=== PATIENT | female | born 1970 | race Caucasian/White ===

== ENCOUNTER 2020-08-16 06:38 | Observation (INO) | payer OTHER ==
--- NOTE | 2020-08-14 16:32 | Diagnostic Imaging Report ---
EXAMINATION: CHEST 2 VIEWS INDICATION: Pre-operative COMPARISON: None FINDINGS: LINES/TUBES:None LUNGS:The lungs are well-inflated. No focal consolidation or pulmonary edema. PLEURA:No pleural effusion or pneumothorax. MEDIASTINUM:The cardiomediastinal silhouette appears normal in size and shape. BONES/SOFT TISSUES:No acute osseous injury. ABDOMEN:No free air under the diaphragm. IMPRESSION: No focal pneumonia or pulmonary edema. Signed by: Frank Sultana MD on 08/14/2020 4:29 PM
[2020-08-14 16:50] LABS: BASOPHILS # (AUTO) 0.1 (0.0-0.1); BASOPHILS % 0.5 % (0.0-1.0); EOSINOPHILS # (AUTO) 0.2 (0.0-0.4); HEMATOCRIT 39.5 % (34.2-44.1); HEMOGLOBIN 13.5 g/dL (12.0-16.0); LYMPHOCYTES # (AUTO) 1.7 (1.0-3.2); LYMPHOCYTES % 17.8 % (18.0-39.1); MEAN CORPUSCULAR HEMOGLOBIN 31.4 pg (28-32); MEAN CORPUSCULAR HGB CONC 34.2 g/dL (31-35); MEAN CORPUSCULAR VOLUME 91.9 fL (81-99); MONOCYTES # (AUTO) 0.6 (0.2-0.8); NEUTROPHILS # (AUTO) 6.9 (2.1-6.9); NEUTROPHILS % 73.4 % (38.7-80.0); PLATELET COUNT 336 x10e3/uL (140-360); RED CELL DISTRIBUTION WIDTH 12.4 % (11.7-14.4)
[2020-08-14 17:04] LABS: INR 0.86; PROTHROMBIN TIME 12.2 seconds (11.9-14.5)
[2020-08-14 17:05] LABS: PARTIAL THROMBOPLASTIN TIME 26.9 seconds (23.8-35.5)
[2020-08-14 17:11] LABS: ANION GAP 14.6 mmol/L (8-16); BLOOD UREA NITROGEN 11 mg/dL (7-26); BUN/CREATININE RATIO 13 (6-25); CALCIUM 9.4 mg/dL (8.4-10.2); CARBON DIOXIDE 25 mmol/L (22-29); CHLORIDE 103 mmol/L (98-107); CREATININE, SERUM 0.84 mg/dL (0.57-1.11); EST GLOMERULAR FILTRATION RATE > 60 ML/MIN (60-); GLUCOSE 100 mg/dL (74-118); POTASSIUM 3.6 mmol/L (3.5-5.1); SODIUM 139 mmol/L (136-145)
[~2020-08-16] VITALS: Ht 177.8 cm; Wt 78.0 kg
[~2020-08-16 06:38] MED LIST: ACETAMINOPHEN 1000 MG/100 ML 100 ML IV ONE; ADVIL200 MG PO; AMLODIPINE BESYL5 MG PO; IBUPROFEN 800MG/ 200ML 200 ML IV ONE; LIDOCAINE HCL (LTA) 4 ML SOLN ONE; TYLENOL325 M2 PO
[2020-08-16] MEDS ORDERED: CEFAZOLIN SOD 1 GM/NS 50ML 100 ML IV ONE (06:55)
[2020-08-16] MEDS ORDERED: VANCOMYCIN HCL 1 GM VIAL ONE (08:28)
[2020-08-16] MEDS ORDERED: THROMBIN FOR SOLN 5,000 UNIT VIAL ONE (08:28)
[2020-08-16] MEDS ORDERED: LIDOCAINE 1% W/EPINEPHRINE 20 ML VIAL ONE (08:28)
[2020-08-16] MEDS ORDERED: PROMETHAZINE HCL (IM) 25 MG/ML VIAL IM PRN (12:00)
[2020-08-16] MEDS ORDERED: MORPHINE SULFATE 5 MG/ML VIAL IM PRN (12:00)
[2020-08-16] MEDS ORDERED: ONDANSETRON HCL INJ 2MG/ML 2ML 2 MG/ML VIAL IV PRN (12:00)
[2020-08-16] MEDS ORDERED: MAGNESIUM/ALUMINUM/SIMETHICONE 30 ML UDC PO PRN (12:00)
[2020-08-16] MEDS ORDERED: ZOLPIDEM TARTRATE 5 MG TAB PO PRN (12:00)
[2020-08-16] MEDS ORDERED: CEPACOL SORE THROAT LOZENGES PO PRN (12:00)
[2020-08-16] MEDS ORDERED: HYDROMORPHONE 2MG/ML 2 MG/ML ML IV PRN (12:00)
[2020-08-16] MEDS ORDERED: CARISOPRODOL 350 MG TAB PO PRN (12:00)
[2020-08-16] MEDS ORDERED: ACETAMINOPHEN 325 MG TAB PO PRN (12:00)
[2020-08-16] MEDS ORDERED: LACTATED RINGER'S 1,000 ML IV SCH (12:00)
[2020-08-16] MEDS ORDERED: NEOSTIGMINE 1 MG/ML 10ML VIAL ONE (12:14)
[2020-08-16] MEDS ORDERED: PROPOFOL IV EMULSION 10 MG/ML 20 ML VIAL ONE (12:14)
[2020-08-16] MEDS ORDERED: LIDOCAINE HCL 2% JELLY 5 ML TUBE ONE (12:14)
[2020-08-16] MEDS ORDERED: SEVOFLURANE INHAL SOLN 250 ML PEN BTL ONE (12:14)
[2020-08-16] MEDS ORDERED: ROCURONIUM BROMIDE 10 MG/ML 5ML VIAL IV ONE (12:14)
[2020-08-16] MEDS ORDERED: GLYCOPYRROLATE INJ 0.2 MG/ML VIAL ONE (12:14)
[2020-08-16] MEDS ORDERED: LIDOCAINE HCL 2% LOCAL INJ 5 ML SDV VIAL INJ ONE (12:14)
[2020-08-16] MEDS ORDERED: DEXAMETHASONE SOD PHOS INJ 4 MG/ML VIAL ONE (12:14)
[2020-08-16] MEDS ORDERED: ONDANSETRON HCL INJ 2MG/ML 2ML 2 MG/ML VIAL ONE (12:14)
[2020-08-16] MEDS ORDERED: FENTANYL CITRATE/PF 100MCG/2 ML INJ ONE ×2 (12:56→13:09)
[2020-08-16] MEDS ORDERED: MIDAZOLAM HCL 2 MG/2 ML VIAL ONE (13:09)
[2020-08-16] MEDS ORDERED: MORPHINE SULFATE INJ 4 MG/ML INJ 1ML IM PRN (14:00)
[2020-08-16] MEDS: OXYCODONE/ACETAMINOPHEN 5-325 1 EACH TABLET PO PRN ×3 (14:19→20:31)
[2020-08-16] MEDS ORDERED: SODIUM CHLORIDE 0.9% 250ML 250 ML ONE (15:44)
[2020-08-16] MEDS: CEFAZOLIN SOD 1 GM/NS 50ML 50 ML IV SCH ×2 (15:58→22:00)
[2020-08-16 16:34] VITALS: BP 109/62
--- NOTE | 2020-08-16 17:01 | Diagnostic Imaging Report ---
EXAMINATION: Lumbar spine radiographs - 1 views CLINICAL HISTORY: Right L5-S1 disc herniation COMPARISON: None. DISCUSSION: Limited intraoperative single cross table radiograph of the lumbar spine. Linear radiopaque surgical markers overlie the L5 vertebra. No acute osseous abnormalities given exam limitations. Moderate degenerative disc changes and facet arthropathy at L5-S1. IMPRESSION: 1. Limited intraoperative cross table radiograph with linear radiopaque surgical markers overlying the L5 vertebra. 2. Moderate degenerative changes at L5-S1. Signed by: Dr. Abel Diez M.D. on 08/16/2020 4:58 PM
--- NOTE | 2020-08-16 17:02 | Diagnostic Imaging Report ---
EXAMINATION: Lumbar spine radiographs - 1 views CLINICAL HISTORY: Right L5-S1 disc herniation COMPARISON: Intraoperative lumbar spine radiograph performed earlier on the same day DISCUSSION: Limited intraoperative single cross table radiograph of the lumbar spine. Linear metallic surgical marker overlies the posterior spinal elements at L5-S1. No acute osseous abnormalities given exam limitations. Moderate degenerative disc changes and facet arthropathy at L5-S1. IMPRESSION: 1. Limited intraoperative cross table radiograph with linear metallic surgical marker overlying the posterior spinal elements at L5-S1. 2. Moderate degenerative changes at L5-S1. Signed by: Dr. Abel Diez M.D. on 08/16/2020 4:59 PM
--- NOTE | 2020-08-16 17:40 | Operative Report ---
DATE OF PROCEDURE: 08/16/2020 SURGEON: Biju Duenas MD PREOPERATIVE DIAGNOSIS: Right L5-S1 disk herniation with radiculopathy, M51.17. POSTOPERATIVE DIAGNOSIS: Right L5-S1 disk herniation with radiculopathy, M51.17. PROCEDURES: Right L5-S1 laminotomy, medial facetectomy, and microsurgical diskectomy, 78[address]. ANESTHESIA: General. INDICATIONS: The patient is a 49-year-old woman, who presents with a right L5-S1 disk herniation with inferior migration of the extruded disk fragment and an intractable right S1 radiculopathy. She was taken to surgery for microsurgical diskectomy. PROCEDURE IN DETAIL: After induction of general anesthesia, the patient was placed on the operating table in prone position over a Melvin frame. The lumbar region was prepped and draped in sterile fashion. A preoperative x-ray was obtained. A small midline incision was created. Lumbar fascia was opened in right of midline and subperiosteal dissection was carried out to expose the right-sided L5-S1 lamina and the medial aspect of the facet joint. A second x-ray confirmed correct localization. The operating microscope was brought in. A high-speed drill equipped with segun bur was used to drill the inferior aspect of the lamina of L5 and the medial rim of the inferior articulating process of L5 and superior rim of the lamina of S1. The ligamentum flavum was resected and the dural sac and S1 nerve root were exposed. The nerve root was slightly retracted medially. The herniated disk material came into view just below the level of the disk space. This was mobilized with a micro ball probe and grasped with a micropituitary rongeur and removed as a large fragment of disk, immediately decompressing the nerve root. The opening into the annulus of the disk was enlarged with a #11 blade and loose contents of the disks were evacuated with curettes and pituitary instruments. Excellent decompression was thus achieved. The wound was irrigated with bacitracin solution and closed in multiple layers with 0 and 2-0 Vicryl sutures. The skin was closed with 3-0 Monocryl sutures in subcuticular fashion. Steri-Strips and dressing were applied. The patient was awakened, extubated, and taken to postanesthesia care unit in stable condition. No intraoperative complications were encountered. Estimated blood loss was minimal. Biju Duenas MD PP/LINDY /[id number]
--- NOTE | 2020-08-16 19:25 | NUR ---
Bedside report completed with morning nurse. Pt alert and oriented to name, lying in bed HOB 45 degrees. Pt c/o mod back pain, will call for medication. Call light within reach, bed low and locked.
[2020-08-16 23:22] VITALS: BP 109/62
[2020-08-17] VITALS: BP 108/53
[2020-08-17 04:00] VITALS: BP 115/68
[2020-08-17] MEDS: CEFAZOLIN SOD 1 GM/NS 50ML 50 ML IV SCH (06:00)
[2020-08-17] MEDS: OXYCODONE/ACETAMINOPHEN 5-325 1 EACH TABLET PO PRN (06:10)
[2020-08-17 08:29] VITALS: BP 115/68
[2020-08-17 08:30] VITALS: BP 121/60
[2020-08-17] MEDS ORDERED: AMLODIPINE BESYLATE 5 MG TAB PO SCH (09:00)
--- NOTE | 2020-08-17 09:28 | NUR ---
dressing removed per [employer] instructions. c/d/i. pt in stable condition, no complaints at this time.
== END 2020-08-17 11:37 | disposition home or self-care (01) ==
LOC: OR 06:38 → PACU V 11:50 → MED/SURG 13:48
PROVIDERS: ADMIT Neurological Surgery; ATTEND Neurological Surgery
DX: M51.17 Intervertebral disc disorders with radiculopathy, lumbosacral region (principal); I10 Essential (primary) hypertension; Z01.810 Encounter for preprocedural cardiovascular examination; Z01.812 Encounter for preprocedural laboratory examination; Z01.818 Encounter for other preprocedural examination; Z11.59 Encounter for screening for other viral diseases
CPT/HCPCS: 36415; 63047; 71046; 72020; 80048; 85025; 85610; 85730; 86850; 86900; 88304; 93005; G0378 ×2; J0131; J0690 ×2; J1100; J2001 ×2; J2250; J2405; J2704; J2710; J3010; J3370; J7050; J7121; U0002

== ENCOUNTER 2020-08-26 01:53 | Observation (INO) | payer OTHER ==
[~2020-08-26] VITALS: Ht 177.8 cm; Wt 78.0 kg
[~2020-08-26 01:53] MED LIST changes: -ACETAMINOPHEN 1000 MG/100 ML 100 ML IV ONE; -IBUPROFEN 800MG/ 200ML 200 ML IV ONE; -LIDOCAINE HCL (LTA) 4 ML SOLN ONE
[2020-08-26] MEDS ORDERED: ONDANSETRON HCL INJ 2MG/ML 2ML 2 MG/ML VIAL IV STA (02:04)
--- NOTE | 2020-08-26 02:20 | Emergency Department Note ---
History of Present Illnes History of Present Illness Chief Complaint: Back Pain History of Present Illness This is a 49 year old female PRESENTS TO THE ER C/O BACK PAIN ONSET X30 MINUTES MANAGER MINING; PT HAD RT L5-S1 DISC HERNIATION SX BY DR. GREWAL ON 08/16/20; PT STATES SHE WAS LAYING ON HER SIDE AND FELT SEVERE PAIN AND THEN FELT A KNOT TO SURGICAL SITE; PT STATES SHE TOOK A 5MG NORCO X30 MINUTES MANAGER MINING; PT STATES PAIN RADIATES DOWN RT LEG; PT IS NAUSEATED. 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 Required: No Onset (how long ago): minute(s) (30) Location: LOWER BACK Quality: PAIN AND SWELLING Radiation: Reports extremity (RLE) Severity: moderate Onset quality: sudden Duration (how long): hour(s) (30 MINUTES) Timing of current episode: constant Progression: unchanged Chronicity: new Context: Reports recent surgery (L5 S1 LAMINECTOMY AND MICRODISKECTOMY 1 ) Relieving factors: none Exacerbating factors: movement Associated symptoms: Reports denies other symptoms Treatments prior to arrival: none Past Medical/Family History Physician Review I have reviewed the patient's past medical and family history. Any updates have been documented here. Past Medical History Recent Fever: No Clinical Suspicion of Infectio: No New/Unexplained Change in Ment: No Past Medical History: Hypertension, Chronic Back Pain Past Surgical History: Hysterectomy, Back Surgery Other Surgery: RT L5-S1 DISC HERNATION - 08/16/20 Social History Smoking Cessation: Never Smoker Alcohol Use: None Any Illegal Drug Use: No Family History Family history of heart diseas: No Review of Systems Review of Systems Constitutional: Reports no symptoms EENTM: Reports no symptoms Cardiovascular: Reports no symptoms Respiratory: Reports no symptoms Gastrointestinal: Reports no symptoms Genitourinary: Reports no symptoms Musculoskeletal: Reports as per HPI Integumentary: Reports no symptoms Neurological: Reports no symptoms Psychological: Reports no symptoms Endocrine: Reports no symptoms Hematological/Lymphatic: Reports no symptoms Physical Exam Related Data Allergies: Coded Allergies: No Known Allergies (Unverified , 08/14/20) Triage Vital Signs Vital Signs Date Time Temp Pulse Resp B/P (MAP) Pulse Ox O2 Delivery O2 Flow Rate FiO2 08/26/20 01:59 97.6 106 20 105/75 100 Room Air Vital signs reviewed: Yes Physical Exam CONSTITUTIONAL Constitutional: Present well-developed, Present well-nourished HENT HENT: Present normocephalic, Present atraumatic, Present oropharynx clear/moist, Present nose normal HENT L/R: Present left ext ear normal, Present right ext ear normal EYES Eyes: Reports PERRL, Reports conjunctivae normal NECK Neck: Present ROM normal PULMONARY Pulmonary: Present effort normal, Present breath sounds normal CARDIOVASCULAR Cardiovascular: Present regular rhythm, Present heart sounds normal, Present capillary refill normal, Present tachycardia (105) GASTROINTESTINAL Abdominal: Present soft, Present nontender, Present bowel sounds normal GENITOURINARY Genitourinary: Present exam deferred SKIN Skin: Present warm, Present dry MUSCULOSKELETAL SWELLING LOCATED AT SURGICAL SITE L5, 2.5X2.5 CM RAISED AREA, FIRM, NON FLUCTUANT, TENDER TO PALPATION, NO DRAINAGE FROM SURGICAL SITE, WOUND C/D/I NEUROLOGICAL Neurological: Present alert, Present oriented x 3, Present no gross motor or sensory deficits PSYCHOLOGICAL Psychological: Present mood/affect normal, Present judgement normal Results Laboratory Laboratory Laboratory Tests Test 08/26/20 02:11 White Blood Count 10.48 x10e3/uL (4.8-10.8) Red Blood Count 4.45 x10e6/uL (3.6-5.1) Hemoglobin 14.1 g/dL (12.0-16.0) Hematocrit 40.6 % (34.2-44.1) Mean Corpuscular Volume 91.2 fL (81-99) Mean Corpuscular Hemoglobin 31.7 pg (28-32) Mean Corpuscular Hemoglobin Concent 34.7 g/dL (31-35) Red Cell Distribution Width 11.9 % (11.7-14.4) Platelet Count 404 x10e3/uL (140-360) Neutrophils (%) (Auto) 62.4 % (38.7-80.0) Lymphocytes (%) (Auto) 25.4 % (18.0-39.1) Monocytes (%) (Auto) 5.0 % (4.4-11.3) Eosinophils (%) (Auto) 5.5 % (0.0-6.0) Basophils (%) (Auto) 1.0 % (0.0-1.0) Neutrophils # (Auto) 6.6 (2.1-6.9) Lymphocytes # (Auto) 2.7 (1.0-3.2) Monocytes # (Auto) 0.5 (0.2-0.8) Eosinophils # (Auto) 0.6 (0.0-0.4) Basophils # (Auto) 0.1 (0.0-0.1) Absolute Immature Granulocyte (auto 0.07 x10e3/uL (0-0.1) Sodium Level 139 mmol/L (136-145) Potassium Level 3.6 mmol/L (3.5-5.1) Chloride Level 102 mmol/L (98-107) Carbon Dioxide Level 25 mmol/L (22-29) Anion Gap 15.6 mmol/L (8-16) Blood Urea Nitrogen 13 mg/dL (7-26) Creatinine 0.88 mg/dL (0.57-1.11) Estimat Glomerular Filtration Rate > 60 ML/MIN (60-) BUN/Creatinine Ratio 15 (6-25) Glucose Level 116 mg/dL (74-118) Calcium Level 9.3 mg/dL (8.4-10.2) Total Bilirubin 0.6 mg/dL (0.2-1.2) Aspartate Amino Transf (AST/SGOT) 17 IU/L (5-34) Alanine Aminotransferase (ALT/SGPT) 18 IU/L (0-55) Alkaline Phosphatase 69 IU/L (40-150) Total Protein 7.6 g/dL (6.5-8.1) Albumin 4.4 g/dL (3.5-5.0) Globulin 3.2 g/dL (2.3-3.5) Albumin/Globulin Ratio 1.4 (0.8-2.0) Lab results reviewed: Yes Imaging Imaging results reviewed: Yes Impressions Procedure: [id number] CT/CT LUMBAR SPINE W Exam Date: 08/26/20 Exam Time: 0300 REPORT STATUS: Signed CT lumbar spine with contrast. History: Raymond pop in low back, pain and swelling in the surgical site. History of recent L5-S1 disc herniation surgery. Comparison studies: X-ray lumbar spine from 08/16/2020. Technique: Axial images were obtained through the lumbar spine from T12-S1. Coronal and sagittal images reconstructed from the axial data. Dose modulation, iterative reconstruction, and/or weight based adjustment of the mA/kV was utilized to reduce the radiation dose to as low as reasonably achievable. Intravenous contrast: 100 mL of Isovue-370. Findings: The usual 5 non-rib bearing lumbar vertebral bodies are present. Alignment: Straightening of normal lumbar lordosis may be positional or due to muscle spasm. Mild dextrocurvature of lower lumbar spine. No subluxation. Soft tissues: Mild subcutaneous soft tissue swelling and surrounding inflammatory stranding at level L5-S1 consistent with expected postoperative changes related to recent intervention. No discrete peripheral rim-enhancing fluid collection. Subcutaneous soft tissue thickening and inflammatory stranding extends from level L1-L5-S1. Incidental 3.4 x 3 cm cystic lesion in the superior pole of right renal parenchyma. Paraspinal muscles: Mild right posterior paraspinal soft tissue edema at level L5-S1 represents expected postoperative changes from recent intervention. Sacroiliac joints: No degenerative changes. Vertebrae: Expected postoperative changes from recent right hemilaminotomy at L5-S1. No fractures, infection or neoplasm. Degenerative changes: L1-L2: Mild left facet arthrosis. No significant canal or foraminal stenosis. L2-L3: No abnormalities. L3-L4: Disc bulge asymmetric to the right in combination with thickened ligamentum flavum and epidural lipomatosis results in mild canal stenosis. No significant foraminal stenosis. L4-L5: Disc bulge in combination with asymmetric right more than left ligamentum flavum thickening, particularly lipomatosis and mild facet arthrosis results in moderate canal stenosis. Moderate bilateral foraminal stenosis. L5-S1: Disc bulge asymmetric to the right with superimposed 6 mm right paracentral disc protrusion effaces and indents thecal sac without significant canal stenosis status post recent intervention. Moderate right foraminal stenosis. Left foramen is patent. Mild bilateral facet arthrosis. Mild degenerative disc disease with degenerative endplate changes and minimal vacuum phenomena. At level S2 vertebral segment there is soft tissue density filling the thecal sac resulting in osseous remodeling of left more than right anterior aspect of S2 vertebral segment, expansion and widening of the spinal canal at this level raises concern for an underlying mass lesion likely perineural Tarlov cyst or peripheral nerve sheath tumor. IMPRESSION: 1. Expected postoperative changes at level L5-S1 with given history of recent surgery for disc herniation, with mild posterior subcutaneous soft tissue swelling, inflammatory stranding and thickening that extends from level L1 to L5-S1 possibly represents postoperative edema/hematoma. No discrete peripheral rim-enhancing fluid collection. Prior studies like CT or MRI of the lumbar spine if made available for comparison will be helpful. 2. Multilevel lumbar spondylosis as detailed above, particularly results in mild canal stenosis at L3-L4, moderate canal stenosis at L4-L5. Moderate bilateral foraminal stenosis at L4-L5 and moderate right foraminal stenosis at L5-S1. 3. Incidental soft tissue lesion resulting in osseous remodeling and expansion of the spinal canal at level S2, possibly represents perineural Tarlov cyst or peripheral nerve sheath tumor which can be better evaluated with MRI of the lumbar spine with and without contrast. 4. Ligament, spinal cord and or vascular abnormalities cannot be excluded on the basis of this examination. Signed by: Dr. Anju Dotson M.D. on 08/26/2020 4:35 AM Dictated By: ANJU DOTSON MD 4 Transcribed By: EDGAR on 08/26/20434 COPY TO: FIOR HUMPHRIES MD~ Assessment & Plan Medical Decision Making MDM PT WITH PAIN AND SWELLING TO SURGICAL SITE LUMBAR SPINE CBC, CMP, CT L-SPINE WITH CONTRAST ORDERED TO EVAL FOR ABSCESS, SEROMA, FRACTURE, LEUKOCYTOSIS I SPOKE WITH DR GREWAL, ADMIT WILL SEE THIS MORNING, PT PLACED IN OBS Assessment & Plan Final Impression: (1) Post-op pain Depart Disposition: ADMITTED Last Vital Signs Date Time Temp Pulse Resp B/P (MAP) Pulse Ox O2 Delivery O2 Flow Rate FiO2 08/26/20 01:59 97.6 106 20 105/75 100 Room Air Home Meds Reported Medications Ibuprofen (ADVIL) 200 Mg Tablet, PO PRN 08/14/20 Acetaminophen (Tylenol) 325 Mg Capsule, PO PRN 08/14/20 Amlodipine Besylate (AMLODIPINE BESYLATE) 5 Mg Tablet, 5 MG PO DAILY, #30 TAB 08/14/20 Medications in the ED Ondansetron HCl 4 mg NOW STAT IV ; Start 08/26/20 at 02:04; Stop 08/26/20 at 02:05 FIOR HUMPHRIES MD Aug 26, 2020 02:20
--- OUTSIDE RECORDS SUMMARY | 2020-08-26 02:24 | XMS REPORT | Continuity of Care Document ---
Author Author [facility] t Organization [facility] Address [address] [place] [address] Phone Unavailable Care Team Providers Care Clinic Office Manager Name Role Phone NONSTAFF PCP Unavailable PAKZABAN, BECKIE Attphys Unavailable PAKZABAN, BECKIE Admphys Unavailable Payers Payer Name Policy Type Policy Number Effective Date Expiration Date S ource Problems Condition Name Condition Details Condition Category Status Onset Date Resolution Date Last Treatment Date Treating Clinician Comments Source Essential hypertension Essential hypertension Disease Active 2019-04-29 00:00:00 [facility] Problem Condition Active [facility] Allergies, Adverse Reactions, Alerts Allergy Name Allergy Type Status Severity Reaction(s) Onset Date Inacti ve Date Treating Clinician Comments Source No Known Allergies DA Active U 2019-09-20 00:00:00 [facility] Family History Family Member Diagnosis Comments Start Date Stop Date Source Natural father Cancer Jordan Me [facility]odist Natural father Colon cancer Jordan Barnhart Maternal grandmother Dementia Hous oleg Barnhart Maternal grandmother Hypertension Ho cindi Barnhart Social History Social Habit Start Date Stop Date Quantity Comments Source Sex Assigned At Carlos Barnhart Tobacco use and exposure 2019-04-29 00:00:00 2019-04-29 00:00:00 Arleth colon used Jordan Barnhart Alcohol intake 2019-04-29 00:00:00 2019-04-29 00:00:00 Current drinker of alcohol (finding) Jordan Barnhart Smoking Status Start Date Stop Date Source Never smoker Jordan Rodriguez t Medications Ordered Medication Name Filled Medication Name Start Date Stop Da te Current Medication? Ordering Clinician Indication Dosage Frequency Signature (SIG) Comments Components Source ibuprofen (ADVIL,MOTRIN) 200 MG tablet 2019-04-26 17:34:08 Yes 200mg Take 200 mg by mouth as needed. Jordan Barnhart dextromethorphan-guaifenesin (MUCINEX DM ) 30-600 mg tablet extended release 12 hr 2019-04-26 00:00:00 Yes 1{tbl} Q.5D Take 1-2 tablets by mouth 2 (two) times a day. Jordan Barnhart benzonatate (TESSALON) 200 MG capsule 2019-04-26 00:00:00 Yes 200mg Q.[id number] Take 1 capsule (200 mg total) by mouth 3 (three) times a day as needed for cough. Jordan spence fluticasone propionate (FLONASE) 50 mcg/actuation nasal spra y 2019-04-26 00:00:00 Yes 100ug QD 2 sprays (100 mcg total ) by Each Nare route daily. Jordan Barnhart amLODIPine (NORVASC) 5 mg tablet 2019-04-26 00:00:00 2020-04 23:59:00 No 5mg QD Take 1 tablet (5 mg total) by mouth daily. Jordan Barnhart Acetaminophen (Tylenol) 325 Mg CAPSULE Acetaminophen (Tylenol) 3 25 Mg CAPSULE Yes As Needed [facility] Amlodipine Besylate Amlodipine Besylate Yes 5 Daily [facility] Ibuprofen (Advil) 200 Mg TABLET Ibuprofen (Advil) 200 Mg TABLET Yes As Needed [facility] Vital Signs Vital Name Observation Time Observation Value Comments Source Body Temperature 2020-08-17 09:30:00 98.2 [degF] [facility] Heart Rate 2020-08-17 09:30:00 70 /min [facility] Respiratory rate 2020-08-17 09:30:00 16 /min [facility] BP Systolic 2020-08-17 09:30:00 121 mm[Hg] [facility] BP Diastolic 2020-08-17 09:30:00 60 mm[Hg] [facility] Oxygen saturation by Pulse oximetry 2020-08-17 09:30:00 98 /min [facility] Weight 2020-08-16 17:35:00 172 [lb_av] [facility] BMI (Body Mass Index) 2020-08-16 17:35:00 24.7 kg/m2 [facility] Procedures Procedure Date / Time Performed Performing Clinician [facility] e X-ray of chest, two views 2020-08-14 00:00:[address] [facility] Plan of Care Planned Activity Planned Date Details Comments Source Future Scheduled Test 2020-05-19 00:00:00 INFLUENZA VACCINE [code = INFLUENZA VACCINE] [facility] Future Scheduled Test 2020-02-24 00:00:00 Screening for lucia gnant neoplasm of cervix (procedure) [code = 287103181] [facility] Future Scheduled Test 2019 00:00:00 BREAST CANCER SCRE ENING [code = BREAST CANCER SCREENING] [facility] Scheduled Test 2019 00:00:00 COLONOSCOPY SCREEN ING [code = COLONOSCOPY SCREENING] [facility] Scheduled Test 2019 00:00:00 SHINGLES VACCINES (#1) [code = SHINGLES VACCINES (#1)] [facility] Instructions Back Pain [facility] Encounters Start Date/Time End Date/Time Encounter Type Admission Type Attendi [facility] Facility Care Department Encounter ID Source 2020-08-16 12:50:00 2020-08-17 12:37:00 Discharged Inpatient (obs) 3 BECKIE GREWAL [facility] [id number] [facility] Results Test Description Test Time Test Comments Results Result Comments Source SPINE 1 VW LUMBAR 2020-08-16 16:58:[facility] 1970 [facility]: F [facility] [address] [address] Patient Name: MARILYNN SANDERS MR #: [id number] : 1970 Age/Sex: 49/F Req #: [id number] Adm Physician: BECKIE GREWAL MD Ordered by: BECKIE GREWAL MD Report #: [id number] Location: MED/SURG Room/Bed: [facility] Procedure: [id number] DX/SPINE 1 VW LUMBAR Exam Date: 08/16/20 Exam Time: 1000 REPORT STATUS: Signed EXAMINATION: Lumbar spine radiographs - 1 views CLINICAL HISTORY: Right L5-S1 disc herniation COMPARISON: Intraoperative lumbar spine radiograph performed earlier on the same day DISCUSSION: Limited intraoperative single cross table radiograph of the lumbar spine. Linear metallic surgical marker overlies the posterior spinal elements at L5-S1. No acute osseous abnormalities given exam limitations. Moderate degenerative disc changes and facet arthropathy at L5-S1. IMPRESSION: 1. Limited intraoperative cross table radiograph with linear metallic surgical marker overlying the posterior spinal elements at L5-S1. 2. Moderate degenerative changes at L5-S1. Signed by: Dr. Yuliya Diez M.D. on 08/16/2020 4:59 PM Dictated By: YULIYA DIEZ MD 58 Transcribed By: EDGAR on 08/16/201658 COPY TO: BECKIE GREWAL MD SPINE 1 VW LUMBAR 2020-08-16 16:56:00 [facility] : 1970 Sex: F [place] [address] Patient Name: MARILYNN SANDERS MR #: [id number] : 1970 Age/Sex: 49/F Req #: [id number] [facility] Physician: BECKIE GREWAL MD Ordered by: BECKIE GREWAL MD Report #: [id number] Location: MED/SURG Room/Bed: [facility] Procedure: [id number] DX/SPINE 1 VW LUMBAR Exam Date: 08/16/20 Exam Time: 1000 REPORT STATUS: Signed EXAMINATION: Lumbar spine radiographs - 1 views CLINICAL HISTORY: Right L5-S1 disc herniation COMPARISON: None. DISCUSSION: Limited intraoperative single cross table radiograph of the lumbar spine. Linear radiopaque surgical markers overlie the L5 vertebra. No acute osseous abnormalities given exam limitations. Moderate degenerative disc changes and facet arthropathy at L5-S1. IMPRESSION: 1. Limited intraoperative cross table radiograph with linear radiopaque surgical markers overlying the L5 vertebra. 2. Moderate degenerative changes at L5-S1. Signed by: Dr. Yuliya Diez M.D. on 08/16/2020 4:58 PM Dictated By: YULIYA DIEZ MD 57 Transcribed By: EDGAR on 08/16/201657 COPY TO: BECKIE GREWAL MD Fluoroscopic procedure less than one hour duration 2020-07-20 9 07:54:00 Test Item Coronavirus (PCR) (test code = Coronavirus (PCR)) NOT DETECTED NOTD ETECTED SARS-COV2/RT-PCR CEPHEIDResults are for the detection of SARS-COV-2 RNA. The CHRISTIAN S-COV-2 RNA is generally detectable in nasopharyngeal swab specimens during the acute phase of infection. Positive results are indicitive of active infection wi SARS-COV-2; clinical correlation with patient history and other diagnostic in formation is necessary to determine patient infection status. Positive results d o not rule out bacterial infection or co-infection with other viruses. The agent detected may not be the definite cause of the disease.The limit of detection for this assay is 250 copies/mLThe SARS-CoV-2 test is a rapid, real-time RT-PCR test intended for the qualitative detection of nucleic acid from SARS-CoV-2 in killian opharyngeal swab specimen collected from individuals suspected of COVID-19 by eir healthcare provider. This test has not been Food and Drug Administration (FD A) cleared or approved and has been authorized by FDA under an Emergency Use Aut horization (EUA). This EUA will be effective until the declaration that circumst ances exist justifying the authorization of the emergency use of in vitro diagno stic test for detection and or diagnosis of COVID-19 is terminated under section 564(b) of the Act, or the the EUA is revoked under 564(g) of the ACT.[facility] automated count (number/volume)2020-08-14 17:43:00* Test Item Value Reference Range Interpretation Comments White Blood Count (test code = 6690-2) 9.38 10*3/uL 4.8-10.8 [facility] erythrocytes automated count (number/volume)2020-08-14 17:43:00* Test Item Value Reference Range Interpretation Comments Red Blood Count (test code = 789-8) 4.30 10*6/mL 3.6-5.1 [facility] hemoglobin measurement (moles/volume)2020-08-14 17:43:00* Test Item Value Reference Range Interpretation Comments Hemoglobin (test code = 71864-8) 13.5 g/dL 12.0-16.0 [facility] Clinic[facility] blood hematocrit (volume fraction)2020-08-14 17:43:00* Test Item Value Reference Range Interpretation Comments Hematocrit (test code = 4544-3) 39.5 % 34.2-44.1 [facility] ClinicAutomated erythrocyte mean corpuscular znflyv6420-76-62 17:43:00* Test Item Value Reference Range Interpretation Comments Mean Corpuscular Volume (test code = 787-2) 91.9 81-99 [facility] ClinicAutom[facility] erythrocyte mean corpuscular hemoglobin (mass per erythrocyte)2020-08-14 17:43:00* Test Item Value Reference Range Interpretation Comments Mean Corpuscular Hemoglobin (test code = 785-6) 31.4 pg 28-32 [facility] ClinicAutom[facility] erythrocyte mean corpuscular hemoglobin concentration measurement (mass/volume)2020-08-14 17:43:00* Test Item Value Reference Range Interpretation Comments Mean Corpuscular Hemoglobin Concent (test code = 786-4) 34.2 g/dL 31-35 [facility] ClinicRDW VjaLm-Agf1450-06-27 17:43:00* Test Item Value Reference Range Interpretation Comments Red Cell Distribution Width (test code = 64672-6) 12.4 % 11.7 -14.4 [facility] Clinic[facility] blood platelet count (count/volume)2020-08-14 17:43:00* Test Item Value Reference Range Interpretation Comments Platelet Count (test code = 777-3) 336 10*3/uL 140-360 [facility] ClinicAutomated blood segmented neutrophil count as percentage of total rwqufatwew9267-45-48 17:43:00* Test Item Value Reference Range Interpretation Comments Neutrophils (%) (Auto) (test code = 62369-0) 73.4 % 38.7-80.0 [facility] ClinicAutom[facility] blood lymphocyte count as percentage ot total hvhudvseyl1688-51-75 17:43:00* Test Item Value Reference Range Interpretation Comments Lymphocytes (%) (Auto) (test code = 736-9) 17.8 % 18.0-39.1 [facility] ClinicAutom[facility] blood monocyte count as percentage of total bqioqysovm1413-25-70 17:43:00* Test Item Value Reference Range Interpretation Comments Monocytes (%) (Auto) (test code = 5905-5) 6.0 % 4.4-11.3 [facility] ClinicAutom[facility] blood eosinophil count as percentage of total lksfqntbnt5732-19-86 17:43:00* Test Item Value Reference Range Interpretation Comments Eosinophils (%) (Auto) (test code = 713-8) 2.0 % 0.0-6.0 [facility] ClinicAutom[facility] blood basophil count as percentage of total pxhxqqynfy9966-01-29 17:43:00* Test Item Value Reference Range Interpretation Comments Basophils (%) (Auto) (test code = 706-2) 0.5 % 0.0-1.0 [facility] ClinicFluoroscopic procedure less than one hour adrmdtmv2474-02-62 17:43:00* Test Item Value Reference Range Interpretation Comments IM GRANULOCYTES % (test code = IM GRANULOCYTES %) 0.3 % 0.0- 1.0 [facility] ClinicAutomated blood neutrophil count 2020-08-14 17:43:00* Test Item Value Reference Range Interpretation Comments Neutrophils # (Auto) (test code = 751-8) 6.9 2.1-6.9 [facility] ClinicBlood lymphocytes count (number/volume) 2020-08-14 17:43:00* Test Item Value Reference Range Interpretation Comments Lymphocytes # (Auto) (test code = 89066-0) 1.7 1.0-3.2 [facility] ClinicBlood monocytes automated count (number/volume)2020-08-14 17:43:00* Test Item Value Reference Range Interpretation Comments Monocytes # (Auto) (test code = 742-7) 0.6 0.2-0.8 [facility] ClinicAutomated blood eosinophil count 2020-08-14 17:43:00* Test Item Value Reference Range Interpretation Comments Eosinophils # (Auto) (test code = 711-2) 0.2 0.0-0.4 [facility] ClinicAutomated blood basophil count (count/volume)2020-08-14 17:43:00* Test Item Value Reference Range Interpretation Comments Basophils # (Auto) (test code = 704-7) 0.1 0.0-0.1 [facility] ClinicFluoroscopic procedure less than one hour ggoykcgg6876-60-17 17:43:00* Test Item Value Reference Range Interpretation Comments Absolute Immature Granulocyte (auto (subhash t code = Absolute Immature Granulocyte (auto) 0.03 10*3/uL 0-0.1 [facility] ClinicProthrombin time (PT) in platelet poor plasma by coagulation kezwm3996-54-36 17:43:00* Test Item Value Reference Range Interpretation Comments Prothrombin Time (test code = 5902-2) 12.2 s 11.9-14.5 [facility] ClinicINR in Platelet poor plasma by Coagulation cbvdi4120-13-08 17:43:00* Test Item Value Reference Range Interpretation Comments Prothromb Time International Ratio (test code = 6301-6) 0.86 Oral Anticoagulant Therapy INR Values:1. Low Intensity Therapy 1.5 - 2.02 . Moderate Intensity Therapy 2.0 - 3.03. High Intensity Therapy(1) 2.5 - 3. 54. High Intensity Therapy(2) 3.0 - 4.05. Panic Value INR > 5.0 [facility] ClinicActivated partial thromboplastin time (aPTT) in platelet poor plasma by coagulation gfjfs5117-48-27 17:43:00* Test Item Value Reference Range Interpretation Comments Activated Partial Thromboplast Time (test code = 05785-0) 26.9 s 23.8-35.5 [facility] sodium measurement (moles/volume)2020-08-14 17:43:00* Test Item Value Reference Range Interpretation Comments Sodium Level (test code = 2951-2) 139 mmol/L 136-145 [facility]rum or plasma potassium measurement (moles/volume)2020-08-14 17:43:00* Test Item Value Reference Range Interpretation Comments Potassium Level (test code = 2823-3) 3.6 mmol/L 3.5-5.1 [facility] or plasma chloride measurement (moles/volume)2020-08-14 17:43:00* Test Item Value Reference Range Interpretation Comments Chloride Level (test code = 2075-0) 103 mmol/L 98-107 [facility]rum or plasma carbon dioxide, total measurement (moles/volume)2020-08-14 17:43:00* Test Item Value Reference Range Interpretation Comments Carbon Dioxide Level (test code = 2028-9) 25 mmol/L 22- [facility] or plasma anion ijk7269-51-21 17:43:00* Test Item Value Reference Range Interpretation Comments Anion Gap (test code = 19403-7) 14.6 mmol/L 8-16 [facility] or plasma urea nitrogen measurement (mass/volume)2020-08-14 17:43:00* Test Item Value Reference Range Interpretation Comments Blood Urea Nitrogen (test code = 3094-0) 11 mg/dL 7- [facility]ererum or plasma creatinine measurement (mass/volume)2020-08-14 17:43:00* Test Item Value Reference Range Interpretation Comments Creatinine (test code = 2160-0) 0.84 mg/dL 0.57-1.11 [facility]rum or plasma urea nitrogen/creatinine mass hghvb2025-52-13 17:43:00* Test Item Value Reference Range Interpretation Comments BUN/Creatinine Ratio (test code = 3097-3) 13 6-25 [facility] ClinicEstimated glomerular filtration rate (GFR) nqxrwfjnlakuk0540-58-50 17:43:00* Test Item Value Reference Range Interpretation Comments Estimat Glomerular Filtration Rate (test code = 053858915) > 60 mL/ min >60 Ranges were taken from the National Kidney Disease Education Program and the Yadi count includes the [facility] Kidney Foundation literature.Reference ranges:60 or greater: Nbktat05-89 ( for 3 consecutive months): Chronic kidney disease 15 or less: Kidney failureFalls Community Hospital and ClinicGlucose cfvxpgcxubu5734-79-09 17:43:00* Test Item Value Reference Range Interpretation Comments Glucose Level (test code = OPJ0878) 100 mg/dL 74-118 [facility]ererum or plasma calcium measurement (mass/volume)2020-08-14 17:43:00* Test Item Value Reference Range Interpretation Comments Calcium Level (test code = 49378-1) 9.4 mg/dL 8.4-10.2 [facility] ClinicCHEST 2 [id number] 16:28:00 [facility] 1970 Sex: F [place] [address] Patient Name: MARILYNN SANDERS MR #: [id number] : 1970 Age/Sex: 49/F Req #: [id number] Adm Physician: Ordered by: BECKIE GREWAL MD Report #: [id number] Location: OR Room/Bed: Procedure: [id number] DX/CHEST 2 VIEWS Exam Date: 08/14/20 Exam Time: 1615 REPORT STATUS: Signed EXAMINATION: CHEST 2 VIEWS INDICATION: Pre-operative COMPARISON: None FINDINGS: LINES/T UBES:None LUNGS:The lungs are well-inflated. No focal consolidation or pulm onary edema. PLEURA:No pleural effusion or pneumothorax. MEDIASTINUM:T he cardiomediastinal silhouette appears normal in size and shape. BONES/SOF T TISSUES:No acute osseous injury. ABDOMEN:No free air under the diaphragm. IMPRESSION: No focal pneumonia or pulmonary edema. Signed by: Ashia Balbuena MD on 08/14/2020 4:29 PM Dictated By: ARTIS gregory Signed By: ARTIS BALBUENA MD on 08/14/201628 Transcribed By: EDGAR on 07/20 COPY TO: BECKIE GREWAL MD UTERUS,OTHER THAN PROLAPSE/[id number] 14:06:00 RUN DATE: 09/27/19 [facility] PAGE 1 RUN TIME: 2006 Specimen Inqui ry RUN USER: INTERFACE PATIENT: MARILYNN SANDERS ACCT #: [id number] LOC: MauricioSKY #: [id number] AGE/SX: 49/F ROOM: [facility] RE09/26/19REG DR: Micheal Melendez MD : [birth year] BED: A DIS: 09/27/19 STATUS: DIS Mary TLOC: SPEC #: [id number] RECD: 09/26/19-1199 STATUS: KAYLI REQ #: [id number] FAVIOLA: 09/26/19- SUBM DR: Micheal Melendez MD ENTERED: 09/26/19-1201 SP TYPE: UTERUSOTH OTHR DR: ORDERED: LEVEL V SURGICA/2 CODES: L95454 - UTERUS, NOS N07407 - OVARY, NOS PROCEDURES: LEVEL V SURGICA (Incomplete) TISSUES: UTERUS, N OS - UTERUS, CERVIX AND BILATERAL FALLOPIAN TUBES OVARY, NOS - LEFT OVAR ANUPAMA CYST CLINICAL HISTORY 49 year old, uterine fibroids (wpd) FINAL DIAGNOSIS Uterus, bilateral fallopian tubes, hysterectomy and bilater al salpingectomy: - cervix - moderate nonspecific chronic cervicitis, no dysplasia identified - endometrium - benign, early secretory phase - myometrium - leiomyomas - uterine serosa - no significant pathologic a lteration - bilateral fallopian tubes - benign paratubal cysts Left ovarian cyst, excision: - corpus luteum cyst CPT code(s): 883 07, 64583 [facility] 09/27/19 GROSS DESCRIPTION ANATOMIC SOURCE OF TISSUE (per Requisition): 1. Cervix, uterus, bilateral tubes 2. Left ovarian cy st Each specimen is labeled with the patient's name and medical record num dorothy. Specimen #1 is designated "cervix, uterus, bilateral tubes". It consi sts of three portions of a partially morcellated hysterectomy specimen aggrega ting to 13 x 9 x 8 cm and 385 gm and two separate segments of unoriented fallo pian tubes with fimbriae attached. The serosa is smith, smooth, and glistening. CONTINUED ON NEXT PAGE RUN DATE: 09/27/19 [facility] PAGE 2 RUN TIME: 2006 Specimen Inquiry RUN USER: INTERFACE SPEC #: [id number] PATIENT: MARILYNN SANDERS #[id number] (Continued) GROSS DESCRIPTION (Con tinued) The cervical external os measures 1.8 cm. The portio vaginalis measu res 3.9 cm. Sampler And Test Preparer sections are submitted in A1. The endometriu m measures 0.1 cm. The myometrium contains additional smith, white, firm nodule s measuring up to 5.5 cm. No degenerative change in the leiomyomas are noted. Sampler And Test Preparer sections are submitted in A2 and A3. The first segment of fallopian tube with fimbria measures 11 x 0.7 x 0.6 cm and contains paratubal yellow tissue measuring up to 1.7 cm and paratubal cysts measuring up to 0.6 cm. The entire fimbria and two cross-sections of the tube with the paratubal yellow tissues and cysts are submitted in A4. The second segment of fallop anupama tube with fimbria measures 8 x 0.6 x 0.6 cm and contains parafimbrial cyst s measuring up to 0.4 cm and paratubal yellow tissue measuring up to 0.7 cm. The entire fimbria and one cross-section of the tube with the parafimbrial cys ts and paratubal yellow tissue are submitted in A5. Specimen #2 is designa faye "left ovarian cyst" and consists of two smith-yellow tissues aggregating to 2.5 x 1.2 x 0.7 cm. It is sectioned and submitted in toto in B1. hz/wpd 07/07 @ 1730 Signed Suzie Vital MD 09/27/19 1406 END OF REPORT HGB [id number] 05:28:00* Test Item Value Reference Range Interpretation Comments HEMOGLOBIN (test code = HGB) 10.3 g/dL 10.7-13.9 L HEMATOCRIT (test code = HCT) 31.0 % 32.1-42.1 L PROTHROMBIN [id number] 19:15:00* Test Item Value Reference Range Interpretation Comments PROTHROMBIN TIME PATIENT (test code = PTP) 11.2 secs 10.4-12.4 N THROMBOPLASTIN TIME [id number] 19:15:00* Test Item Value Reference Range Interpretation Comments THROMBOPLASTIN TIME PARTIAL (test code = PTT) 31.6 secs 22-38 N CHEMISTRY 7 [id number] 19:14:00* Test Item Value Reference Range Interpretation Comments SODIUM (test code = NA) 139 mEq/L 135-145 N POTASSIUM (test code = K) 3.6 mEq/L 3.5-5.0 N CHLORIDE (test code = CL) 101 mEq/L 100-115 N CARBON DIOXIDE (test code = CO2) 26 mEq/L 22-31 N ANION GAP (test code = GAP) 15.90 10-20 N GLUCOSE (test code = GLU) 140 mg/dL 65-110 H BLOOD UREA NITROGEN (test code = BUN) 5 mg/dL 7-18 L GLOMERULAR FILTRATION RATE (test code = GFR) 76 ml/min >60 N CREATININE (test code = CREAT) 0.8 mg/dL 0.5-1.0 N CALCIUM (test code = CA) 8.5 mg/dL 8.4-10.2 N HCG SERUM [id number] 19:14:00* Test Item Value Reference Range Interpretation Comments HCG SERUM QUAL (test code = HCGQL) NEGATIVE CHEMISTRY 7 [id number] 19:12:00* Test Item Value Reference Range Interpretation Comments SODIUM (test code = NA) 139 mEq/L 135-145 N POTASSIUM (test code = K) 3.6 mEq/L 3.5-5.0 N CHLORIDE (test code = CL) 101 mEq/L 100-115 N CARBON DIOXIDE (test code = CO2) 26 mEq/L 22-31 N ANION GAP (test code = GAP) 15.90 10-20 N GLUCOSE (test code = GLU) 140 mg/dL 65-110 H BLOOD UREA NITROGEN (test code = BUN) 5 mg/dL 7-18 L GLOMERULAR FILTRATION RATE (test code = GFR) 76 ml/min >60 N CREATININE (test code = CREAT) 0.8 mg/dL 0.5-1.0 N CALCIUM (test code = CA) 8.5 mg/dL 8.4-10.2 N HCG SERUM [id number] 19:12:00* Test Item Value Reference Range Interpretation Comments HCG SERUM QUAL (test code = HCGQL) CBC W/AUTO [id number] 18:36:00* Test Item Value Reference Range Interpretation Comments WHITE BLOOD CELL (test code = WBC) 8.1 K/mm3 6.6-12.1 N RED BLOOD CELL (test code = RBC) 4.20 M/mm3 3.45-5.01 N HEMOGLOBIN (test code = HGB) 13.2 g/dL 10.7-13.9 N HEMATOCRIT (test code = HCT) 40.9 % 32.1-42.1 N MEAN CELL VOLUME (test code = MCV) 97 fL 84.1-94.8 H MEAN CELL HGB (test code = MCH) 31.4 pg 27-35 N MEAN CELL HGB CONCETRATION (test code = MCHC) 32.3 gm/dL 32.2-34. 1 N RED CELL DISTRIBUTION WIDTH (test code = RDW) 12.3 % 12.4-16. 5 L PLATELET COUNT (test code = PLT) 295 K/mm3 133-385 N IMMATURE PLATELET FRACTION (test code = IPF) 0.0 % 0.0-10.8 N MEAN PLATELET VOLUME (test code = MPV) 9.9 fl 9.1-12.7 N NEUTROPHIL % (test code = NT%) 76.8 % 56.5-79.4 N LYMPHOCYTE % (test code = LY%) 16.4 % 14.3-34.3 N MONOCYTE % (test code = MO%) 5.0 % 5.1-10.4 L EOSINOPHIL % (test code = EO%) 0.9 % 0.1-3.0 N BASOPHIL % (test code = BA%) 0.4 % 0.1-1.0 N NEUTROPHIL # (test code = NT#) 6.2 K/mm3 LYMPHOCYTE # (test code = LY#) 1.3 K/mm3 MONOCYTE # (test code = MO#) 0.4 K/mm3 EOSINOPHIL # (test code = EO#) 0.07 K/mm3 BASOPHIL # (test code = BA#) 0.0 K/mm3 RBC MORPHOLOGY REQUIRED (test code = RBCM) NORMAL NORMAL PLATELET MORPHOLOGY REQUIRED (test code = PLTMR) NORMAL CIERRA L
--- OUTSIDE RECORDS SUMMARY | 2020-08-26 02:24 | XMS REPORT | Clinical Summary ---
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 Active dextromethorphan-guaifene Take 1-2 30 each 0 sin (MUCINEX DM) 30-600 tablets by 9 mg tablet extended mouth 2 (two) release 12 hr times a day. Active benzonatate (TESSALON) Take 1 20 capsule 0 200 MG capsule capsule (200 9 mg total) by mouth 3 (three) times a day as needed for cough. Active fluticasone propionate 2 sprays (100 15.8 mL 0 0 (FLONASE) 50 mcg total) by 9 mcg/actuation nasal spray Each Nare route daily. 04/25/2020 amLODIPine (NORVASC) 5 mg Take 1 tablet 30 tablet 8 tablet (5 mg total) 9 by mouth daily. Active Problems Problem Noted Date Essential hypertension 04/29/2019 Surgical History Surgery Date Site/Laterality Comments COLONOSCOPY 10/19/2012 - 10/18/2013 ENDOMETRIAL ABLATION 07/20/2012 Medical History Medical History Date Comments Anemia Fibroid, uterine 03/2019 Hemorrhoid Essential hypertension Family History Medical History Relation Name Comments Cancer Father Fred Colon cancer Colon cancer Father Fred Dementia Maternal Maya Grandmother Hypertension Maternal Maya Grandmother Relation Name Status Comments Brother Alive Father Fred Maternal Grandmother Maya Mother Alive Social History Date Tobacco Use Types Packs/Day Years Used Never Smoker 0 0 Smokeless Tobacco: Never Used Drinks/Week oz/Week Comments Alcohol Use 4-5 Cans of beer 4.0 Yes Sex Assigned at Date Recorded Not on file Obstetrics History Term Pre Abrt (TAB) (SAB) (Ect) Mult Lvng Comments Grav Para 2 0 0 0 0 0 0 2 2 2 Date GA Total Labor Labor/2nd/3rd Weight Sex Delivery Anes PTL Christa A1 A5 Name Clin Outcome 06/09/1996 M Vag-Spont Living Term 10/29/1999 F Vag-Spont Living Term Last Filed Vital Signs Not on file Plan of Treatment Health Maintenance Due Date Last Done Comments BREAST CANCER SCREENING 2019 02/23/2017 COLONOSCOPY SCREENING 2019 SHINGLES VACCINES (#1) 2019 CERVICAL CANCER SCREENING 02/24/2020 02/23/2017 INFLUENZA VACCINE 05/19/2020 Results Not on fileafter 08/26/2019 Insurance Type Payer Benefit Subscriber ID Effective Phone Address Plan / Dates Group HMO/PPO [facility] [id number] THCARE resent CHOICE/CHO ICE + Advance Directives For more information, please contact: [phone] Patient Records Administrator Explanation Type Date Recorded Advance Directives, Living Will and 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
[2020-08-26 02:41] LABS: BASOPHILS # (AUTO) 0.1 (0.0-0.1); EOSINOPHILS # (AUTO) 0.6 (0.0-0.4); EOSINOPHILS % 5.5 % (0.0-6.0); HEMATOCRIT 40.6 % (34.2-44.1); HEMOGLOBIN 14.1 g/dL (12.0-16.0); LYMPHOCYTES # (AUTO) 2.7 (1.0-3.2); LYMPHOCYTES % 25.4 % (18.0-39.1); MEAN CORPUSCULAR HEMOGLOBIN 31.7 pg (28-32); MEAN CORPUSCULAR HGB CONC 34.7 g/dL (31-35); MEAN CORPUSCULAR VOLUME 91.2 fL (81-99); MONOCYTES # (AUTO) 0.5 (0.2-0.8); NEUTROPHILS # (AUTO) 6.6 (2.1-6.9); NEUTROPHILS % 62.4 % (38.7-80.0); PLATELET COUNT 404 x10e3/uL (140-360); RED BLOOD COUNT 4.45 x10e6/uL (3.6-5.1); RED CELL DISTRIBUTION WIDTH 11.9 % (11.7-14.4)
[2020-08-26 02:48] LABS: ALANINE AMINOTRANSFERASE 18 IU/L (0-55); ALBUMIN 4.4 g/dL (3.5-5.0); ALBUMIN/GLOBULIN RATIO 1.4 (0.8-2.0); ALKALINE PHOSPHATASE 69 IU/L (40-150); ANION GAP 15.6 mmol/L (8-16); BLOOD UREA NITROGEN 13 mg/dL (7-26); BUN/CREATININE RATIO 15 (6-25); CALCIUM 9.3 mg/dL (8.4-10.2); CARBON DIOXIDE 25 mmol/L (22-29); CHLORIDE 102 mmol/L (98-107); CREATININE, SERUM 0.88 mg/dL (0.57-1.11); EST GLOMERULAR FILTRATION RATE > 60 ML/MIN (60-); GLUCOSE 116 mg/dL (74-118); POTASSIUM 3.6 mmol/L (3.5-5.1); SODIUM 139 mmol/L (136-145)
[2020-08-26] MEDS ORDERED: KETOROLAC TROMETHAMINE 30 MG/ML VIAL IV STA (03:02)
[2020-08-26] MEDS ORDERED: IOPAMIDOL 370 MG/ML 200 ML INFUS..BTL INJ ONE (03:11)
[2020-08-26] MEDS ORDERED: SODIUM CHLORIDE 0.9% 50ML 50 ML ONE (03:12)
--- NOTE | 2020-08-26 04:39 | Diagnostic Imaging Report ---
CT lumbar spine with contrast. History: [place] pop in low back, pain and swelling in the surgical site. History of recent L5-S1 disc herniation surgery. Comparison studies: X-ray lumbar spine from 08/16/2020. Technique: Axial images were obtained through the lumbar spine from T12-S1. Coronal and sagittal images reconstructed from the axial data. Dose modulation, iterative reconstruction, and/or weight based adjustment of the mA/kV was utilized to reduce the radiation dose to as low as reasonably achievable. Intravenous contrast: 100 mL of Isovue-370. Findings: The usual 5 non-rib bearing lumbar vertebral bodies are present. Alignment: Straightening of normal lumbar lordosis may be positional or due to muscle spasm. Mild dextrocurvature of lower lumbar spine. No subluxation. Soft tissues: Mild subcutaneous soft tissue swelling and surrounding inflammatory stranding at level L5-S1 consistent with expected postoperative changes related to recent intervention. No discrete peripheral rim-enhancing fluid collection. Subcutaneous soft tissue thickening and inflammatory stranding extends from level L1-L5-S1. Incidental 3.4 x 3 cm cystic lesion in the superior pole of right renal parenchyma. Paraspinal muscles: Mild right posterior paraspinal soft tissue edema at level L5-S1 represents expected postoperative changes from recent intervention. Sacroiliac joints: No degenerative changes. Vertebrae: Expected postoperative changes from recent right hemilaminotomy at L5-S1. No fractures, infection or neoplasm. Degenerative changes: L1-L2: Mild left facet arthrosis. No significant canal or foraminal stenosis. L2-L3: No abnormalities. L3-L4: Disc bulge asymmetric to the right in combination with thickened ligamentum flavum and epidural lipomatosis results in mild canal stenosis. No significant foraminal stenosis. L4-L5: Disc bulge in combination with asymmetric right more than left ligamentum flavum thickening, particularly lipomatosis and mild facet arthrosis results in moderate canal stenosis. Moderate bilateral foraminal stenosis. L5-S1: Disc bulge asymmetric to the right with superimposed 6 mm right paracentral disc protrusion effaces and indents thecal sac without significant canal stenosis status post recent intervention. Moderate right foraminal stenosis. Left foramen is patent. Mild bilateral facet arthrosis. Mild degenerative disc disease with degenerative endplate changes and minimal vacuum phenomena. At level S2 vertebral segment there is soft tissue density filling the thecal sac resulting in osseous remodeling of left more than right anterior aspect of S2 vertebral segment, expansion and widening of the spinal canal at this level raises concern for an underlying mass lesion likely perineural Tarlov cyst or peripheral nerve sheath tumor. IMPRESSION: 1. Expected postoperative changes at level L5-S1 with given history of recent surgery for disc herniation, with mild posterior subcutaneous soft tissue swelling, inflammatory stranding and thickening that extends from level L1 to L5-S1 possibly represents postoperative edema/hematoma. No discrete peripheral rim-enhancing fluid collection. Prior studies like CT or MRI of the lumbar spine if made available for comparison will be helpful. 2. Multilevel lumbar spondylosis as detailed above, particularly results in mild canal stenosis at L3-L4, moderate canal stenosis at L4-L5. Moderate bilateral foraminal stenosis at L4-L5 and moderate right foraminal stenosis at L5-S1. 3. Incidental soft tissue lesion resulting in osseous remodeling and expansion of the spinal canal at level S2, possibly represents perineural Tarlov cyst or peripheral nerve sheath tumor which can be better evaluated with MRI of the lumbar spine with and without contrast. 4. Ligament, spinal cord and or vascular abnormalities cannot be excluded on the basis of this examination. Signed by: Dr. Anju Altamirano M.D. on 08/26/2020 4:35 AM
[2020-08-26] MEDS ORDERED: ONDANSETRON HCL INJ 2MG/ML 2ML 2 MG/ML VIAL IV PRN (04:45)
[2020-08-26] MEDS ORDERED: MORPHINE SULFATE INJ 4 MG/ML INJ 1ML IV PRN (04:45)
[2020-08-26] MEDS ORDERED: SODIUM CHLORIDE FLUSH 10 ML SYR INJ PRN (04:45)
--- OUTSIDE RECORDS SUMMARY | 2020-08-26 04:49 | XMS REPORT | Continuity of Care Document ---
Author Author [facility] t Organization [facility] Address [address] [place] [address] Phone Unavailable Care Team Providers Care Robotics Application Engineer Name Role Phone NONSTAFF PCP Unavailable Kasandra HUMPHRIES Attphys Unavailable PAKZABAN, BECKIE Attphys Unavailable PAKZABAN, BECKIE Admphys Unavailable Payers Payer Name Policy Type Policy Number Effective Date Expiration Date S ource Problems Condition Name Condition Details Condition Category Status Onset Date Resolution Date Last Treatment Date Treating Clinician Comments Source Essential hypertension Essential hypertension Disease Active 2019-04-29 00:00:[address] [facility] [address] Problem Condition Active [facility] Allergies, Adverse Reactions, Alerts Allergy Name Allergy Type Status Severity Reaction(s) Onset Date Inacti ve Date Treating Clinician Comments Source No Known Allergies DA Active U 2019-09-20 00:00:00 [facility] Family History Family Member Diagnosis Comments Start [...] 200 MG capsule 2019-04-26 00:00:00 Yes 200mg [id number] Take 1 capsule (200 mg total) by [...] 3 25 Mg CAPSULE Yes As Needed [facility] Amlodipine Besylate Amlodipine Besylate Yes 5 Daily [facility] Ibuprofen (Advil) 200 Mg TABLET Ibuprofen (Advil) 200 Mg TABLET Yes As Needed [facility] Vital Signs Vital Name Observation Time Observation Value Comments Source Body Temperature 2020-08-17 09:30:00 98.2 [degF] [facility] Heart Rate 2020-08-17 09:30:00 70 /min [facility] Respiratory rate 2020-08-17 09:30:00 16 /min [facility] BP Systolic 2020-08-17 09:30:00 121 mm[Hg] [facility] BP Diastolic 2020-08-17 09:30:00 60 mm[Hg] [facility] Oxygen saturation by Pulse oximetry 2020-08-17 09:30:00 98 /min [facility] Weight 2020-08-16 17:35:00 172 [lb_av] [facility] BMI (Body Mass Index) 2020-08-16 17:35:00 24.7 kg/m2 [facility] Procedures Procedure Date / Time Performed Performing Clinician [facility] e X-ray of chest, two views 2020-08-14 00:00:00 I [facility] Plan of Care Planned Activity Planned Date Details Comments Source Future Scheduled Test 2020-05-19 00:00:00 INFLUENZA VACCINE [code = INFLUENZA VACCINE] [facility] Future Scheduled Test 2020-02-24 00:00:00 Screening for lucia gnant neoplasm of cervix (procedure) [code = 617880833] [facility] Future Scheduled Test 2019 00:00:00 BREAST CANCER SCRE ENING [code = BREAST CANCER SCREENING] [facility] Future Scheduled Test 2019 00:00:00 COLONOSCOPY SCREEN ING [code = COLONOSCOPY SCREENING] [facility] Scheduled Test 2019 00:00:00 SHINGLES VACCINES (#1) [code = SHINGLES VACCINES (#1)] [facility] Encounters Start Date/Time End Date/Time Encounter Type Admission Type Attendi [facility] Facility Care Department Encounter ID Source 2020-08-16 12:50:00 2020-08-17 12:37:00 Discharged Inpatient (obs) 3 URI BECKIE [facility] [id number] [facility] I [facility] Results Test Description Test Time Test Comments Results Result Comments Source CT LUMBAR SPINE W 2020-08-26 04:03:00 [facility] 1970 Sex: F [facility] [address] [address] Patient Name: MARILYNN SANDERS MR #: [id number] : 1970 Age/Sex: 49/F Req #: [id number] Adm Physician: Ordered by: FIOR HUMPHRIES MD Report #: [id number] Location: ER Room/Bed: Procedure: [id number] CT/CT LUMBAR SPINE W Exam Date: 08/26/20 Exam Time: 0300 REPORT STATUS: Signed CT lumbar spine with contrast. Hi story: [place] pop in low back, pain and swelling in the surgical site. History of recent L5-S1 disc herniation surgery. Comparison studies: X-ray lumbar spine from 08/16/2020. Technique: Axial images were obtained through the lumbar spine from T12-S1. Coronal and sagittal images reconstructed from the axial data. Dose modulation, iterative reconstruction, and/or weight based adjustment of the mA/kV was utilized to reduce the radiation dose to as low as reasonably achievable. Intravenous contrast: 100 mL of Isovue-370. Findings: The usual 5 non-rib bearing lumbar vertebral bodies are present. Alignment: Straightening of normal lumbar lordosis may be positional or due to muscle spasm. Mild dextrocurvature of lower lumbar spine. No subluxation. Soft tissues: Mild subcutaneous soft tissue swelling and surrounding inflammatory stranding at level L5-S1 consistent with expected postoperative changes related to recent intervention. No discrete peripheral rim-enhancing fluid collection. Subcutaneous soft tissue thickening and inflammatory stranding extends from level L1-L5-S1. Incidental 3.4 x 3 cm cystic lesion in the superior pole of right renal parenchyma. Paraspinal muscles: Mild right posterior paraspinal soft tissue edema at level L5-S1 represents expected postoperative changes from recent intervention. Sacroiliac joints: No degenerative changes. Vertebrae: Expected postoperative changes from recent right hemilaminotomy at L5-S1. No fractures, infection or neoplasm. Degenerative changes: L1-L2: Mild left facet arthrosis. No significant canal or foraminal stenosis. L2-L3: No abnormalities. L3-L4: Disc bulge asymmetric to the right in combination with thickened ligamentum flavum and epidural lipomatosis results in mild canal stenosis. No significant foraminal stenosis. L4-L5: Disc bulge in combination with asymmetric right more than left ligamentum flavum thickening, particularly lipomatosis and mild facet arthrosis results in moderate canal stenosis. Moderate bilateral foraminal stenosis. L5-S1: Disc bulge asymmetric to the right with superimposed 6 mm right paracentral disc protrusion effaces and indents thecal sac without significant canal stenosis status post recent intervention. Moderate right foraminal stenosis. Left foramen is patent. Mild bilateral fa cet arthrosis. Mild degenerative disc disease with degenerative endplate changes and minimal vacuum phenomena. At level S2 vertebral segment there is soft tissue density filling the thecal sac resulting in osseous remodeling of left more than right anterior aspect of S2 vertebral segment, expansion and widening of the spinal canal at this level raises concern for an underlying mass lesion likely perineural Tarlov cyst or peripheral nerve sheath tumor. IMPRESSION: 1. Expected postoperative changes at level L5-S1 with given history of recent surgery for disc herniation, with mild posterior subcutaneous soft tissue swelling, inflammatory stranding and thickening that extends from level L1 to L5-S1 possibly represents postoperative edema/hematoma. No discrete peripheral rim-enhancing fluid collection. Prior studies like CT or MRI of the lumbar spine if made available for comparison will be helpful. 2. Multilevel lumbar spondylosis as detailed above, parti cularly results in mild canal stenosis at L3-L4, moderate canal stenosis at L4-L5. Moderate bilateral foraminal stenosis at L4-L5 and moderate right foraminal stenosis at L5-S1. 3. Incidental soft tissue lesion resulting in osseous remodeling and expansion of the spinal canal at level S2, possibly represents perineural Tarlov cyst or peripheral nerve sheath tumor which can be better evaluated with MRI of the lumbar spine with and without contrast. 4. Ligament, spinal cord and or vascular abnormalities cannot be excluded on the basis of this examination. Signed by: Dr. Anju Altamirano M.D. on 08/26/2020 4:35 AM Dictated By: ANJU ALTAMIRANO MD 4 Transcribed By: EDGAR on 08/26/20434 COPY TO: FIOR HUMPHRIES MD SPINE 1 VW LUMBAR 2020-08-16 16:58:00 [facility] 1970 Sex: F [address] [address] Patient Name: MARILYNN SANDERS MR #: [id number] : 1970 Age/Sex: 49/F Req #: [id number] [facility] Physician: BECKIE GREWAL MD Ordered by: BECKIE GREWAL MD Report #: [id number] Location: MED/SURG Room/Bed: 107- Procedure: [id number] DX/SPINE 1 VW LUMBAR Exam Date: 08/16/20 [...] SPINE 1 VW LUMBAR 2020-08-16 16:56:00 [facility] : 1970 Sex: F [address] [address] Patient Name: MARILYNN SANDERS MR #: [id number] : 1970 Age/Sex: 49/F Req #: [id number] Adm Physician: BECKIE GREWAL MD Ordered by: BECKIE GREWAL MD Report #: [id number] Location: MED/SURG Room/Bed: 107-1 Procedure: [id number] DX/SPINE 1 VW LUMBAR Exam Date: 08/16/20 [...] procedure less than one hour duration 2020-07-20 07:54:00 Test Item Coronavirus (PCR) (test code = Coronavirus (PCR)) NOT DETECTED NOTD ETECTED SARS-COV2/RT-PCR CEPHEIDResults are for the detection of SARS-COV-2 RNA. The CHRISTIAN S-COV-2 RNA is generally detectable in nasopharyngeal swab specimens during the acute phase of infection. Positive results are indicitive of active infection wi th SARS-COV-2; clinical correlation with patient history and [...] collected from individuals suspected of COVID-19 by [facility] healthcare provider. This test has not been [...] the ACT.[facility] automated count (number/volume)2020-08-14 17:43:00* Test Item Value Reference Range Interpretation Comments White Blood Count (test code = 6690-2) 9.38 10*3/uL 4.8-10.8 [facility] erythrocytes automated count (number/volume)2020-08-14 17:43:00* Test Item Value Reference Range Interpretation Comments Red Blood Count (test code = 789-8) 4.30 10*6/mL 3.6-5.1 [facility] hemoglobin measurement (moles/volume)2020-08-14 17:43:00* Test Item Value Reference Range Interpretation Comments Hemoglobin (test code = 49504-4) 13.5 g/dL 12.0-16.0 [facility] HospitalAutomated blood hematocrit (volume fraction)2020-08-14 17:43:00* Test Item Value Reference Range Interpretation Comments Hematocrit (test code = 4544-3) 39.5 % 34.2-44.1 [facility] HospitalAutomated erythrocyte mean corpuscular avonmn6038-55-86 17:43:00* Test Item Value Reference Range Interpretation Comments Mean Corpuscular Volume (test code = 787-2) 91.9 81-99 [facility] HospitalAutomated erythrocyte mean corpuscular hemoglobin (mass per erythrocyte)2020-08-14 17:43:00* Test Item Value Reference Range Interpretation Comments Mean Corpuscular Hemoglobin (test code = 785-6) 31.4 pg 28-32 [facility] HospitalAutomated erythrocyte mean corpuscular hemoglobin concentration measurement (mass/volume)2020-08-14 17:43:00* Test Item Value Reference Range Interpretation Comments Mean Corpuscular Hemoglobin Concent (test code = 786-4) 34.2 g/dL 31-35 [facility] HospitalRDW XylKa-Dbr4991-77-27 17:43:00* Test Item Value Reference Range Interpretation Comments Red Cell Distribution Width (test code = 04473-3) 12.4 % 11.7 -14.4 [facility] HospitalAutomated blood platelet count (count/volume)2020-08-14 17:43:00* Test Item Value Reference Range Interpretation Comments Platelet Count (test code = 777-3) 336 10*3/uL 140-360 [facility] HospitalAutomated blood segmented neutrophil count as percentage of total tftqgtoruv9343-45-13 17:43:00* Test Item Value Reference Range Interpretation Comments Neutrophils (%) (Auto) (test code = 72639-4) 73.4 % 38.7-80.0 [facility] HospitalAutomated blood lymphocyte count as percentage ot total lpjhgpcvsa2524-72-24 17:43:00* Test Item Value Reference Range Interpretation Comments Lymphocytes (%) (Auto) (test code = 736-9) 17.8 % 18.0-39.1 [facility] HospitalAutomated blood monocyte count as percentage of total jchqqnhicn4583-56-97 17:43:00* Test Item Value Reference Range Interpretation Comments Monocytes (%) (Auto) (test code = 5905-5) 6.0 % 4.4-11.3 [facility] HospitalAutomated blood eosinophil count as percentage of total qculwbdntx3066-14-05 17:43:00* Test Item Value Reference Range Interpretation Comments Eosinophils (%) (Auto) (test code = 713-8) 2.0 % 0.0-6.0 [facility] HospitalAutomated blood basophil count as percentage of total bcyryukiec8273-45-05 17:43:00* Test Item Value Reference Range Interpretation Comments Basophils (%) (Auto) (test code = 706-2) 0.5 % 0.0-1.0 [facility] HospitalFluoroscopic procedure less than one hour margazhi1552-11-07 17:43:00* Test Item Value Reference Range Interpretation Comments IM GRANULOCYTES % (test code = IM GRANULOCYTES %) 0.3 % 0.0- 1.0 [facility] HospitalAutomated blood neutrophil count 2020-08-14 17:43:00* Test Item Value Reference Range Interpretation Comments Neutrophils # (Auto) (test code = 751-8) 6.9 2.1-6.9 [facility]Blood lymphocytes count (number/volume) 2020-08-14 17:43:00* Test Item Value Reference Range Interpretation Comments Lymphocytes # (Auto) (test code = 05574-4) 1.7 1.0-3.2 [facility] HospitalBlood monocytes automated count (number/volume)2020-08-14 17:43:00* Test Item Value Reference Range Interpretation Comments Monocytes # (Auto) (test code = 742-7) 0.6 0.2-0.8 [facility] HospitalAutomated blood eosinophil count 2020-08-14 17:43:00* Test Item Value Reference Range Interpretation Comments Eosinophils # (Auto) (test code = 711-2) 0.2 0.0-0.4 [facility] HospitalAutomated blood basophil count (count/volume)2020-08-14 17:43:00* Test Item Value Reference Range Interpretation Comments Basophils # (Auto) (test code = 704-7) 0.1 0.0-0.1 [facility] HospitalFluoroscopic procedure less than one hour ljazgnzc8532-96-60 17:43:00* Test Item Value Reference Range Interpretation Comments Absolute Immature Granulocyte (auto (subhash t code = Absolute Immature Granulocyte (auto) 0.03 10*3/uL 0-0.1 [facility] HospitalProthrombin time (PT) in platelet poor plasma by coagulation fhvfe8147-79-69 17:43:00* Test Item Value Reference Range Interpretation Comments Prothrombin Time (test code = 5902-2) 12.2 s 11.9-14.5 [facility] HospitalINR in Platelet poor plasma by Coagulation ygegk5003-99-95 17:43:00* Test Item Value Reference Range Interpretation Comments Prothromb Time International Ratio (test code = 6301-6) 0.86 Oral Anticoagulant Therapy INR Values:1. Low Intensity Therapy 1.5 - 2.02 . Moderate Intensity Therapy 2.0 - 3.03. High Intensity Therapy(1) 2.5 - 3. 54. High Intensity Therapy(2) 3.0 - 4.05. Panic Value INR > 5.0 [facility] HospitalActivated partial thromboplastin time (aPTT) in platelet poor plasma by coagulation lfcku3897-50-43 17:43:00* Test Item Value Reference Range Interpretation Comments Activated Partial Thromboplast Time (test code = 55347-9) 26.9 s 23.8-35.5 [facility]um or plasma sodium measurement (moles/volume)2020-08-14 17:43:00* Test Item Value Reference Range Interpretation Comments Sodium Level (test code = 2951-2) 139 mmol/L 136-145 [facility]udaerum or plasma potassium measurement (moles/volume)2020-08-14 17:43:00* Test Item Value Reference Range Interpretation Comments Potassium Level (test code = 2823-3) 3.6 mmol/L 3.5-5.1 [facility]udaerum or plasma chloride measurement (moles/volume)2020-08-14 17:43:00* Test Item Value Reference Range Interpretation Comments Chloride Level (test code = 2075-0) 103 mmol/L 98-107 [facility]udaerum or plasma carbon dioxide, total measurement (moles/volume)2020-08-14 17:43:00* Test Item Value Reference Range Interpretation Comments Carbon Dioxide Level (test code = 2028-9) 25 mmol/L 22-29 [facility] Budaerum or plasma anion xnp2817-55-85 17:43:00* Test Item Value Reference Range Interpretation Comments Anion Gap (test code = 84236-6) 14.6 mmol/L 8-16 [facility]udaerum or plasma urea nitrogen measurement (mass/volume)2020-08-14 17:43:00* Test Item Value Reference Range Interpretation Comments Blood Urea Nitrogen (test code = 3094-0) 11 mg/dL 7- [facility] Budaerum or plasma creatinine measurement (mass/volume)2020-08-14 17:43:00* Test Item Value Reference Range Interpretation Comments Creatinine (test code = 2160-0) 0.84 mg/dL 0.57-1.11 [facility]udaerum or plasma urea nitrogen/creatinine mass qznse7736-92-91 17:43:00* Test Item Value Reference Range Interpretation Comments BUN/Creatinine Ratio (test code = 3097-3) 13 6- [facility] HospitalEstimated glomerular filtration rate (GFR) pmwtcvbjtqwix3780-77-76 17:43:00* Test Item Value Reference Range Interpretation Comments Estimat Glomerular Filtration Rate (test code = 382470427) > 60 mL/ min >60 Ranges were taken from the National Kidney Disease Education Program and the [facility] Foundation literature.Reference ranges:60 or greater: Tgeoba31-09 ( for 3 consecutive months): Chronic kidney disease 15 or less: Kidney failureNorth Central Baptist HospitalGlucose ohupzarsugu5743-94-19 17:43:00* Test Item Value Reference Range Interpretation Comments Glucose Level (test code = DJO0767) 100 mg/dL 74-118 [facility] Budaerum or plasma calcium measurement (mass/volume)2020-08-14 17:43:00* Test Item Value Reference Range Interpretation Comments Calcium Level (test code = 63465-2) 9.4 mg/dL 8.4-10.2 [facility] HospitalCHEST 2 [id number] 16:28:00 [facility] : 1970 Sex: F [facility] [address] [place] [address] Patient Name: MARILYNN SANDERS MR #: [id number] : 1970 Age/Sex: 49/F Req #: [id number] Adm Physician: Ordered by: BECKIE GREWAL MD Report #: [id number] Location: OR Room/Bed: Procedure: [id number] DX/CHEST 2 VIEWS Exam Date: 08/14/20 Exam [...] on 08/14/2020 4:29 PM Dictated By: ARTIS BALBUENA MD [facility] Signed By: ARTIS BALBUENA MD on 08/14/201628 Transcribed By: EDGAR on 07/20 COPY TO: BECKIE GREWAL MD UTERUS,OTHER THAN PROLAPSE/UJJ7601-15-56 14:06:00 RUN DATE: 09/27/19 [facility] PAGE [facility] RUN TIME: 2006 Specimen Inqui ry RUN USER: INTERFACE PATIENT: MARILYNN SANDERS ACCT #: [id number] LOC: ANCELMO U #: [id number] AGE/SX: 49/F ROOM: [facility] RE09/26/19REG DR: Micheal Melendez MD : [birth year] BED: A DIS: 09/27/19 STATUS: DIS Mary TLOC: SPEC #: [id number] RECD: 09/26/19 STATUS: KAYLI REClay #: [id number] FAVIOLA: 09/26/19- SUBM DR: Micheal Melendez MD ENTERED: 09/26/19120 SP TYPE: UTERUSOTH OTHR : ORDERED: LEVEL V SURGICA/2 CODES: V93084 - UTERUS, NOS E44582 - OVARY, NOS PROCEDURES: LEVEL V SURGICA [...] corpus luteum cyst CPT code(s): 883 07, [address] [facility] 09/27/19 GROSS DESCRIPTION ANATOMIC SOURCE OF TISSUE [...] Specimen Inquiry RUN USER: INTERFACE SPEC #: [id number] PATIENT: MARILYNN SANDERS #[id number] (Continued) GROSS DESCRIPTION (Con tinued) The cervical external os measures 1.8 cm. The portio vaginalis measu res 3.9 cm. Repairer Kiln Car sections are submitted in A1. The endometriu m measures 0.1 cm. The myometrium contains additional smith, white, firm nodule s measuring up to 5.5 cm. No degenerative change in the leiomyomas are noted. Repairer Kiln Car sections are submitted in A2 and A3. [...] sectioned and submitted in toto in B1. samantha/wpd 07/07 @ 1730 Signed Suzie Vital MD 09/27/19 1406 END OF REPORT HGB [id number] 05:28:00* Test Item Value Reference Range Interpretation Comments HEMOGLOBIN (test code = HGB) 10.3 g/dL 10.7-13.9 L HEMATOCRIT (test code = HCT) 31.0 % 32.1-42.1 L PROTHROMBIN [id number] 19:15:00* Test Item Value Reference Range Interpretation Comments PROTHROMBIN TIME PATIENT (test code = PTP) 11.2 secs 10.4-12.4 N THROMBOPLASTIN TIME [id number] 19:15:00* Test Item Value Reference Range Interpretation Comments THROMBOPLASTIN TIME PARTIAL (test code = PTT) 31.6 secs 22-38 N CHEMISTRY 7 [id number] 19:14:00* Test Item Value Reference Range Interpretation [...] CA) 8.5 mg/dL 8.4-10.2 N HCG SERUM [id number] 19:14:00* Test Item Value Reference Range Interpretation Comments HCG SERUM QUAL (test code = HCGQL) NEGATIVE CHEMISTRY 7 [id number] 19:12:00* Test Item Value Reference Range Interpretation [...] CA) 8.5 mg/dL 8.4-10.2 N HCG SERUM [id number] 19:12:00* Test Item Value Reference Range Interpretation Comments HCG SERUM QUAL (test code = HCGQL) CBC W/AUTO [id number] 18:36:00* Test Item Value Reference Range Interpretation [...]
--- OUTSIDE RECORDS SUMMARY | 2020-08-26 04:49 | XMS REPORT | Clinical Summary ---
Author Author [facility] Address Unknown Phone Unavailable Care Team Providers Care Applications Consultant Name Role Phone Mariama Dominguez MD PCP [...] Phone Address Plan / Dates Group HMO/PPO [facility] [id number] THCARE resent CHOICE/CHO ICE + Advance Directives For more information, please contact: [phone] Patient Apiarist Explanation Type Date Recorded Advance Directives, Living Will and Medical Power of Marine Electronics Technician
[2020-08-26 05:30] VITALS: BP 152/73
--- NOTE | 2020-08-26 05:30 | NUR ---
RECEIVED PATIENT FROM ED AT THIS TIME VIA STRETCHER. PATIENT AMBULATED TO BED, STEADY GAIT NOTED. PATIENT A&OX3. PAIN 4/10 TO LOWER BACK. INCISION WITH DERMABOND NOTED. NO DRAINAGE. SWELLING NOTED TO UPPER HALF. LUNG SOUNDS CLEAR. BOWEL SOUNDS ACTIVE. PEDAL PULSES PALPABLE. SKIN INTACT. PATIENT ORIENTED TO ROOM AND CALL LIGHT SYSTEM. BED LOCKED IN LOWEST POSITION, SIDE RAILS UPX2, CALL LIGHT IN REACH.
[2020-08-26 05:39] VITALS: BP 152/73
[2020-08-26] MEDS ORDERED: MELATONIN3 MG PO (05:58)
[2020-08-26] MEDS ORDERED: PROBIOTIC & AC1 EACH PO (05:58)
--- NOTE | 2020-08-26 07:00 | NUR ---
BEDSIDE SHIFT REPORT RECEIVED PT IN STABLE CONDITION CO PAIN 01/26 PT, HAS MORPHINE ON PROFILE BUT WOULD LIKE SOMETHING DIFFERENT. WILL NOTIFY DR GREWAL FOR PAIN MED CHANGE. L AC 20G NO SS OF INFILTRATION NOTED. NO OTHER CO VOICED CALL LIGHT IN REACH WILL CONTINUE TO MONITOR
--- NOTE | 2020-08-26 07:00 | NUR ---
BEDSIDE SHIFT REPORT RECEIVED PT IN STABLE CONDITION DENIES PAIN AT THIS TIME, UPDATED ON POC VOICED UNDERSTANDING, CALL LIGHT IN REACH WILL CONTINUE TO MONITOR
--- NOTE | 2020-08-26 07:24 | NUR ---
PAGEDionicio GREWAL FOR PAIN MEDS AND RESTART HOME MEDS. DAY SHIFT RN WILL TAKE CALL BACK.
[2020-08-26] MEDS ORDERED: ACETAMINOPHEN 325 MG TAB PO PRN (07:30)
[2020-08-26] MEDS ORDERED: MELATONIN 5 MG TABLET PO PRN (07:30)
--- NOTE | 2020-08-26 07:33 | NUR ---
SPOKE WITH MD GREWAL, NEW ORDERS RECEIVED. ALSO SPOKE TO RADIOLOGY TO CONFIRM STAT ORDER FOR MRI. STAT TEAM WILL BE CALLED OUT.
[2020-08-26] MEDS: HYDROCODONE/APAP 7.5MG-325MG 1 EA TAB PO PRN ×2 (08:12→13:40)
[2020-08-26 08:14] VITALS: BP 132/72
[2020-08-26] MEDS ORDERED: AMLODIPINE BESYLATE 5 MG TAB PO SCH (09:00)
[2020-08-26] MEDS ORDERED: LACTOBACILLUS ACIDOPHILUS CAPSULE PO SCH (09:00)
[2020-08-26 09:04] VITALS: BP 132/72
[2020-08-26] MEDS ORDERED: GADOBENATE DIMEGLUMINE 1 ML IV ONE (09:52)
--- NOTE | 2020-08-26 12:12 | Diagnostic Imaging Report ---
Examination: MRI SPINE LUMBAR WOW CONTRAST History: ^INFLAMMATION TO LUMBAR SPINE S/P LAMINECTOMY Comparison studies: 08/26/2020 CT lumbar spine Technique: Pre-contrast: Sagittal and axial T2 , sagittal T1 and IR, axial spin density oblique. Post contrast: Axial and sagittal fat saturated sequences. Intravenous contrast: 15 mL of MultiHance. Findings: Number of lumbar vertebral bodies:Five. Alignment: Normal lordosis. No scoliosis. Soft tissues: There is evidence of prior right L4 laminotomy with normal postsurgical fluid extending from the laminotomy site through the right paraspinal soft tissues up to the skin. There is, however, a 4.5 x 1.0 x 1.2 cm (superoinferior x anteroposterior x transverse dimensions) rim-enhancing, T1 slightly bright and T2 bright collection in the midline and right posterior epidural space from mid L4 to the bottom of L5 and causes severe thecal sac compression at L4-L5 and mild at L5-S1. The differential diagnosis of this lesion includes a hematoma versus an abscess. Gradient echo imaging would assist in differentiating a hemorrhage from abscess. A nonenhancing 4.6cm (craniocaudal dimension) T2 hyperintense lesion of the upper pole of the right kidney. Paraspinal muscles: No signal abnormalities. Well-preserved. No atrophic changes Lower thoracic cord: Normal in signal and morphology. The tip of the conus is at L1. Cauda equina: No masses. No arachnoiditis. Vertebrae: No compression fractures, infection or neoplasm. Smooth scalloping of the bilateral posterolateral S2 vertebrae with the largest on the left that measure 2.4cm (craniocaudal dimension) and represent Tarlov cysts. Degenerative changes: L1-L2 through L3-L4: No abnormalities L4-L5: Symmetric disc bulge and bilateral facet arthropathy result in mild bilateral neural foraminal narrowing. No canal stenosis. L5-S1: Peripherally enhancing right central disc protrusion as seen on sagittal post contrast T1 (series 8, image #7; measures 9mm in craniocaudal dimension) and enhancing granulation tissue contact and surround the descending right S1 nerve root, respectively. No canal stenosis due to right laminotomy. IMPRESSION: A 4.5 x 1.0 x 1.2 cm collection as described in the midline and right posterior epidural space from mid L4 to the bottom of L5 represents either a hematoma or abscess. A gradient echo image in sagittal and axial planes will help in differentiating and should be obtained. Dr. Donna Ryder discussed findings with Dr. Strong on 08/26/2020 at 1149 hours. L5-S1 right laminotomy, right central disc protrusion and enhancing granulation tissue about descending right S1 as detailed above. Expected postsurgical change of the right of midline dorsal soft tissues at L5-S1. Signed by: Dr. Donna Ryder M.D. on 08/26/2020 12:08 PM
[2020-08-26 12:46] VITALS: BP 125/65
[2020-08-26] MEDS ORDERED: MEDROL DOSE PACK (13:20)
--- NOTE | 2020-08-26 15:21 | History and Physical ---
PRINCIPAL DIAGNOSIS: Recurrent right leg radiculopathy. HISTORY OF PRESENT ILLNESS: The patient is a 49-year-old woman who underwent right L5-S1 laminotomy and microsurgical diskectomy by me exactly 10 days ago with excellent results and complete resolution of her radicular pain. I saw her in my office three days ago at which time she was in excellent condition and had cut off all pain medications. Last night, when turning in bed, she felt a pop in her back and developed acute onset of recurrent pain radiating down the right leg. She presented to the emergency room were a CT of the lumbar spine was performed and she was admitted. An MRI was performed this morning. PAST MEDICAL HISTORY: Hypertension. MEDICATIONS: Amlodipine. ALLERGIES: NONE. SOCIAL HISTORY: The patient does not smoke or drink alcohol. 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 REVIEW OF SYSTEMS: Negative. The patient denies any fever or chills. PHYSICAL EXAMINATION: GENERAL: The patient is alert and healthy and in no acute distress. She is able to really get out of bed and walk around without any difficulty. EXTREMITIES: Her gait is normal. Straight leg raising provokes right hip pain at 45 degrees, but no radiating leg pain. Motor strength is full and symmetric in the anterior tibialis, gastrocnemius, and quadriceps. Deep tendon reflexes are 1+ in the right Achilles, 2+ in the left Achilles, and 2+ in both patellar tendon. Plantar responses are flexor. There is no dermatomal or sensory deficit. MRI of the lumbar spine was reviewed. There is an isodense fluid collection that extends behind the lamina of L5 from the region of the laminotomy superiorly on the right side, producing mild compression of the dural sac. This is communication with seroma fluid to the right of the spinous process which extends into the subcutaneous compartment. The patient's incision is healing well with no evidence of dehiscence or drainage or erythema or tenderness. There is mild subcutaneous bulging. White blood count is normal. The patient has no fever. The rapid onset of the pain after feeling a pop in her back last night and the MRI findings suggest popped suture with formation of an epidural hematoma. The absence of fever and white count and the sudden onset of the symptoms argue strongly against an infection. She has no evidence of recurrent disk herniation. The plan is to discharge her today with a prescription for Decadron. She has [place] at home. I will follow her closely as an outpatient to see how her scenario evolves. If she develops worsening of symptoms or any evidence of infection, I will take her back to surgery for exploration of her lumbar incision. Otherwise, I expect her to improve with time and corticosteroids. I explained this plan of care with her. She understands it fully and is in agreement. She can be discharged home today. Biju Duenas MD PP/LINDY /[id number]
== END 2020-08-26 15:03 | disposition home or self-care (01) ==
LOC: ER 02:03 → ERHOLD 04:47 → MED/SURG 05:25
PROVIDERS: ADMIT Neurological Surgery; ATTEND Neurological Surgery
DX: G89.18 Other acute postprocedural pain (principal); M54.16 Radiculopathy, lumbar region; Z11.59 Encounter for screening for other viral diseases
CPT/HCPCS: 36415; 72132; 72158; 80053; 85025; 96374; 96375; 99284; G0378; J1885; Q9967; U0002

== ENCOUNTER 2020-09-11 15:59 | Outpatient (RCR) | payer OTHER ==
[~2020-09-11 15:59] MED LIST changes: +MEDROL DOSE PACK; +MELATONIN3 MG PO; +PROBIOTIC & AC1 EACH PO
== END 2020-09-17 ==
LOC: PT 15:59
PROVIDERS: ATTEND Neurological Surgery
DX: M51.17 Intervertebral disc disorders with radiculopathy, lumbosacral region (principal); M62.81 Muscle weakness (generalized); M54.5 Low back pain

== ENCOUNTER 2020-10-09 10:58 | Outpatient (RCR) | payer OTHER | END 2020-10-18 | LOC: PT 10:58 | PROVIDERS: ATTEND Neurological Surgery | DX: M51.17 Intervertebral disc disorders with radiculopathy, lumbosacral region (principal) | CPT/HCPCS: 97139 ==